=== PATIENT | female | born 1950 | race African-American/Black ===

== ENCOUNTER 2016-12-10 09:48 | Emergency (ER) | payer OTHER, MEDICARE ==
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
--- NOTE | ~2016-12-10 | CR253 ---
[facility] A Service of [facility] & [facility] RADIOLOGY TEXT RESULTS PATIENT: NOAH MILLER LOCATION: [facility] : 50 UNIT #: [id number] AGE: [address]: Venu Nguyen MD SEX: F ORDER DR: [id number] [facility] [address] [place], [place] [address] [id number] E MR#: [id number] Acc #: [id number] NAME: NOAH MILLER : 1950 SEX: F STUDY DATE/TIME: 12/10/2016 13:48 UNIT: [facility] ROOM: STUDY DESCRIPTION: CR Tibia and Fibula 2 Views Rt Attending Physician: Miguel A Nguyen M.D. Ordering Physician: Ed Srikanth Guadalupe M.D. Primary Care Physician: No Primary Care Physician MEDICAL IMAGING REPORT This report is preliminary unless electronic signature is present EXAM Right tibia and fibula. HISTORY Pain in right knee and tib-fib region today. FINDINGS There is no evidence of fracture, dislocation, or radiopaque foreign body. IMPRESSION Normal tibia and fibula. Dictated by... Jayant Lane M.D. THIS IS AN ELECTRONICALLY VERIFIED REPORT Jayant Lane M.D. at 12/10/2016 5:14 PM Krystyna TD: 12/10/2016 16:43 JOB #: [id number] MEDICAL IMAGING REPORT Page 1 of 1 COPY
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
[~2016-12-10 09:48] MED LIST: CIPRO PO; GLUCOPHAGE500 MG PO; HYDROCODON-ACE1 EAC4 PO; LANTUS100 UNITS/ SUBQ; NAPROSYN-EC500 MG PO; OMEPRAZOLE40 MG PO; VICODIN PO; VOLTAREN75 MG PO
== END 2016-12-10 17:00 | disposition home or self-care (01) ==
LOC: CED 09:48 → CFTX 09:48 → CED 11:22
DX: S92.354A Nondisplaced fracture of fifth metatarsal bone, right foot, initial encounter for closed fracture (principal); S13.4XXA Sprain of ligaments of cervical spine, initial encounter; S00.83XA Contusion of other part of head, initial encounter; E11.9 Type 2 diabetes mellitus without complications; Z79.4 Long term (current) use of insulin; V43.52XA Car driver injured in collision with other type car in traffic accident, initial encounter; Y92.410 Unspecified street and highway as the place of occurrence of the external cause
CPT/HCPCS: 29540; 70450; 72125; 73560; 73590; 73610; 73630; 99284; J1885